=== PATIENT | female | born 2000 | race Caucasian/White ===

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

== ENCOUNTER 2019-03-15 12:50 | Inpatient (IN) | payer OTHER ==
[~2019-03-15] VITALS: Ht 162.6 cm; Wt 59.4 kg
[2019-03-15 13:29] LABS: Hematocrit 36.5 % (33.0-51.0); Hemoglobin 11.9 g/dL (11.5-16.0); Mean Corpuscular HGB 28.5 pg (26.0-34.0); Mean Corpuscular HGB Conc 32.6 g/dL (31.5-36.5); Mean Corpuscular Volume 88 fL (80-100); Mean Platelet Volume 8.8 fL (9.1-12.4); Platelet Count 268 K/mm3 (150-400); RDW Coefficient Variation 13.1 % (11.7-14.2); Red Blood Cell Count 4.17 M/mm3 (3.80-5.20); White Blood Cell Count 17.42 K/mm3 (4.00-11.30)
[2019-03-15 13:43] LABS: Alanine Aminotransfer (ALT/SGP 99 U/L (12-78); Albumin, Blood 3.4 g/dL (3.4-5.0); Albumin/Globulin Ratio 0.9 (0.8-1.8); Alk Phos 133 U/L (45-116); Anion Gap 6 mmol/L (6-16); Aspartate Aminotrans (AST/SGOT 171 U/L (12-37); Bilirubin, Total 0.8 mg/dL (0.1-1.0); Blood Urea Nitrogen 15 mg/dL (8-21); Bun/Creatinine Ratio 18.2 (12.0-20.0); CO2, Blood 25 mmol/L (21-32); Calcium, Blood 8.5 mg/dL (8.5-10.1); Chloride, Blood 105 mmol/L (98-108); Creatinine, Blood 0.82 mg/dL (0.40-1.00); Globulin, Blood 3.8 g/dL (2.2-4.0); Glomerular Filtration Rate >60 (60-); Glucose, Blood 118 mg/dL (70-99); Potassium, Blood 3.7 mmol/L (3.5-5.5); Sodium, Blood 136 mmol/L (136-145); Total Protein, Blood 7.2 g/dL (6.4-8.2)
[2019-03-15 13:49] LABS: BAND PERCENT MAN 3 % (0-8); BASOPHILS PERCENT MAN 0 % (0-2); EOSINOPHILS PERCENT MAN 0 % (0-6); LYMPHOCYTES ABSOLUTE MAN 0.52 K/mm3 (0.84-5.20); LYMPHOCYTES PERCENT MAN 3 % (21-46); MONOCYTES PERCENT MAN 0 % (4-13); NEUTROPHILS ABSOLUTE MAN 16.89 K/mm3 (1.96-9.15); SEG NEUTROPHILS PERCENT MAN 94 % (41-73); TOTAL CELLS COUNTED 100
--- NOTE | 2019-03-15 19:37 | NUR ---
ADMIT NOTE RECEIVED REPORT FROM SONALI CESPEDES RN IN ED. PT TO ROOM VIA GURNEY, 4 PERSON TRANSFER WITH SLIDER SHEET AT 1850. PT ORIENTED TO UNIT AND CALL LIGHT. PT EDUCATED ON FALL RISK AND ASKED TO USE CALL LIGHT PRIOR TO GETTING OUT OF BED. BED ALARM PLACED. PT RESPONDS TO VERBAL AND TACTILE STIMULI, PT STATES PERFERED NAME IS EZRIE. PT QUICKLY FALLS BACK ASLEEP AFER ANSWERING 1 QUESTION. VS: SBP STABLE IN 90'S, HEART 70-90'S AT REST, RESP 16 EVEN AND UNLABORED AND >92% ON RA, PT AFEBRILE ON ADMIT. PER REPORT PT USED HEROIN LAST THIS AM, AFTERWARD STARTED HAVING HEADACHE, FEVER, CHILLS, AND BODY ACHES. PT HAS INJECTION SITES ON INNER RIGHT ELBOW. CALLED DR FITZPATRICK TO CLARIFY ROCEPHIN ORDERS, HODL 1800 DOSE, TOO SOON AFTER 1415 DOSE. REPORTS GIVEN TO ONCOMING RN.
[2019-03-15 19:40] LABS: International Normalized Ratio 1.13; Prothrombin Time Results 11.8 Sec (9.7-11.5)
[2019-03-16 04:53] LABS: BASOPHILS ABSOLUTE AUTO 0.04 K/mm3 (0.00-0.23); BASOPHILS PERCENT AUTO 0 % (0-2); EOSINOPHILS ABSOLUTE AUTO 0.09 K/mm3 (0.00-0.68); EOSINOPHILS PERCENT AUTO 1 % (0-6); Hematocrit 32.8 % (33.0-51.0); Hemoglobin 10.7 g/dL (11.5-16.0); IMMATURE GRAN ABSOLUTE AUTO 0.07 K/mm3 (0.00-0.10); IMMATURE GRAN PERCENT AUTO 0 % (0-1); LYMPHOCYTES ABSOLUTE AUTO 2.06 K/mm3 (0.84-5.20); LYMPHOCYTES PERCENT AUTO 12 % (21-46); MONOCYTES ABSOLUTE AUTO 0.63 K/mm3 (0.16-1.47); MONOCYTES PERCENT AUTO 4 % (4-13); Mean Corpuscular HGB 27.9 pg (26.0-34.0); Mean Corpuscular HGB Conc 32.6 g/dL (31.5-36.5); Mean Platelet Volume 9.1 fL (9.1-12.4); NEUTROPHILS ABSOLUTE AUTO 14.76 K/mm3 (1.96-9.15); NEUTROPHILS PERCENT AUTO 84 % (41-73); Platelet Count 210 K/mm3 (150-400); RDW Coefficient Variation 13.5 % (11.7-14.2); RDW Standard Deviation 42.2 fL (35.1-46.3); Red Blood Cell Count 3.84 M/mm3 (3.80-5.20); White Blood Cell Count 17.65 K/mm3 (4.00-11.30)
[2019-03-16 04:54] LABS: Mean Corpuscular Volume 85 fL (80-100)
[2019-03-16 05:12] LABS: Alanine Aminotransfer (ALT/SGP 66 U/L (12-78); Albumin, Blood 2.8 g/dL (3.4-5.0); Albumin/Globulin Ratio 0.8 (0.8-1.8); Alk Phos 95 U/L (45-116); Anion Gap 5 mmol/L (6-16); Aspartate Aminotrans (AST/SGOT 55 U/L (12-37); Bilirubin, Total 0.4 mg/dL (0.1-1.0); Blood Urea Nitrogen 11 mg/dL (8-21); Bun/Creatinine Ratio 14.1 (12.0-20.0); CO2, Blood 25 mmol/L (21-32); Calcium, Blood 7.8 mg/dL (8.5-10.1); Chloride, Blood 113 mmol/L (98-108); Creatinine, Blood 0.78 mg/dL (0.40-1.00); Globulin, Blood 3.5 g/dL (2.2-4.0); Glomerular Filtration Rate >60 (60-); Glucose, Blood 90 mg/dL (70-99); Sodium, Blood 143 mmol/L (136-145); Total Protein, Blood 6.3 g/dL (6.4-8.2)
--- NOTE | 2019-03-16 06:44 | NUR ---
SHIFT SUMMARY PATIENT DROWSY AND LETHARGIC AT THE BEGINNING OF THE SHIFT. PATIENT WAS EASILY AROUSIBLE WITH VERBAL STIMULI AND TOUCH. HOWEVER, PATIENT WOULD FALL BACK ASLEEP IN THE MIDDLE OF SENTENCES. PATIENT APPEARED TO BE DROWSY UNTIL APPROX 0300 WHEN SHE BEGAN WAKING UP AND ASKING FOR FOOD. PATIENT CURRENTLY AWAKE, AERLT, ORIENTED, AND ABLE TO CARRY ON CONVERSATIONS WITH STAFF. PATIENT REPORTED REMEMBERING BEING VERY SLEEPY AND REMEMBERING THAT HER GRANDMA CAME BY TO VISIT AT THE BEGINNING OF THE SHIFT BUT SHE DOES NOT REMEMBER MUCH MORE THAN THAT PRIOR TO APPROX 0300. PATIENT CURRENTLY SITTING UP IN BED, EATING A SNACK AND WATCHING TV. VISITORS IN ROOM WITH PATIENT. IV FLUIDS RUNNING PER ORDERS. VITAL SIGNS CHARTED. WILL CONTINUE TO MONITOR PATIENT AND REPORT TO ONCOMING RN.
--- NOTE | 2019-03-16 09:40 | NUR ---
LATE ENTRY 07 PT AWAKE, ALERT AND ORIENTED, PT STATES SHE DOES NOT REMEMBER COMING UP TO THE ROOM LAST NIGHT. PT HAS BF AND FRIEND AT BEDSIDE. ROOM HAS FOOD WRAPS SCATTERED ON BEDSIDE TABLE. PT ASKING TO GO OUTSIDE TO SPOKE, PT NOTIFIED WE WOULD NEED TO SPEAK WITH DR KNOTT WHEN SHE ROUNDED. PT SPEECH IS FAST ANS PRESSURED. PT REPORTS HEADACHE, WILL MEDICATE PER EMAR. PT DENIES SOB AND NAUSEA. VSS. NO OTHER ACUTE CHAGNES NOTED. LATE ENTRY 09 PT GIVEN VANCO, PEPCID AND TYLENOL. PT ASKING TO GO OUT TO SMOKE. DR FITZPATRICK AT BEDSIDE, FIRST QUESTION IS IF SHE CAN GO SMOKE. NEW ORDERS FOR MED NO TELE, PT OK TO GO OUT SIDE AND SMOKE. PT NOTIFIED ONCE ANTIBITICS ARE COMPLETED WE CAN UNHOOK HER SO SHE CAN GO SMOKE. WILL CONTINUE TO MONITOR.
--- NOTE | 2019-03-16 11:11 | NUR ---
PT ASKING TO GO OUT TO SMOKE, STATES SHE WANTS TO LEAVE AND THAT SHE IS BOARD HERE. UNHOOKED PT FROM FLUIDS, PT IS MED STATUS NO TELE AND PER DR FITZPATRICK PATIENT IS ABLE TO GO OUT TO SMOKE. EDUCATED PT ON OPTIONS TO LEAVE AMA, STATES SHE WILL STAY IF WE ARE ABLE TO GIVE HER HEROIN OR SYNTHETIC HEROIN.
--- NOTE | 2019-03-16 12:29 | NUR ---
PT IN ROOM, EATING LUNCH, SITTING ON SIDE OF BED. VSS. PT STATES SHE IS GOING BACK OUTSIDE TO SMOKE, THEN WE CAN HOOK HER BACK UP TO FLUIDS. PT EDUCATED ON POLICY ON BEING OUT OF ROOM. WILL CONTINUE TO MONITOR.
--- NOTE | 2019-03-16 13:42 | NUR ---
PT BACK TO ROOM AFTER SECOND TRIP OUTSIDE TO SMOKE. PT SPEECH HAS SLOWED, DOES NOT APPEAR TO BE PRESSURE, LIKE PREVOUS ENCOUNTERS. PT HOOKED BACK UP TO FLUIDS. WILL CONTINUE TO MONITOR.
[2019-03-16 15:57] LABS: Vancomycin, Trough 11.6 ug/mL (5.0-10.0)
--- NOTE | 2019-03-16 18:21 | NUR ---
PT BACK TO ROOM AFTER A 1.5 HR TRIP SMOKING, RASHMIO GIVEN LATE AND WILL FOLLOW UP WITH JYOTSNA ONCE COMPLETE. PT EDUCATED ON POLICY OF GOING OUT FOR LESS THAN AN HOUR AND IS DEFENSIVE STATING SHE "WASNT GONE THAT LONG." HOWEVER, IS AGREEABLE FOR FUTURE WALKS.
--- NOTE | 2019-03-16 18:25 | NUR ---
SHIFT SUMMARY PT A&OX4. ANXIOUS AT TIMES. PT SPEECH THIS AM WAS PRESSURE AND FAST, SLOWED DOWN T/O SHIFT AFTER PATIENT WENT OUTSIDE TO SMOKE. PT RESTING IN BED/ON SIDE OF BED DURING SHIFT, IND IN ROOM. PT REPORTS HEADACHE AND PAIN IN LOWER BACK, MEDICATED PER EMAR. PT MEDICATED FOR ANXIETY PER ORDERS. PT DENIES SOB AND NAUSEA, PT REQUESTING MULTIPLE SNACK T/O SHIFT. PT RECEIVING IV ANTIBIOTICS. VSS. NO OTHER ACUTE CHAGNES NOTED DURING SHIFT. WILL CONTINUE TO MONITOR UNITL REPORT GIVE TO ONCOMING RN.
--- NOTE | 2019-03-16 19:30 | NUR ---
UPDATE VERIFIED WITH WHIT FROM [employer] MONITORING THAT THEY ARE ABLE TO VIEW ROOM AND PATIENT WELL AT THIS TIME.
[2019-03-17 06:13] LABS: BASOPHILS ABSOLUTE AUTO 0.03 K/mm3 (0.00-0.23); BASOPHILS PERCENT AUTO 0 % (0-2); EOSINOPHILS PERCENT AUTO 3 % (0-6); Hematocrit 32.6 % (33.0-51.0); Hemoglobin 10.4 g/dL (11.5-16.0); IMMATURE GRAN ABSOLUTE AUTO 0.02 K/mm3 (0.00-0.10); IMMATURE GRAN PERCENT AUTO 0 % (0-1); LYMPHOCYTES ABSOLUTE AUTO 2.16 K/mm3 (0.84-5.20); LYMPHOCYTES PERCENT AUTO 30 % (21-46); MONOCYTES ABSOLUTE AUTO 0.64 K/mm3 (0.16-1.47); MONOCYTES PERCENT AUTO 9 % (4-13); Mean Corpuscular HGB Conc 31.9 g/dL (31.5-36.5); Mean Corpuscular Volume 88 fL (80-100); Mean Platelet Volume 9.3 fL (9.1-12.4); NEUTROPHILS ABSOLUTE AUTO 4.21 K/mm3 (1.96-9.15); NEUTROPHILS PERCENT AUTO 58 % (41-73); Platelet Count 216 K/mm3 (150-400); RDW Standard Deviation 45.1 fL (35.1-46.3); Red Blood Cell Count 3.71 M/mm3 (3.80-5.20); White Blood Cell Count 7.26 K/mm3 (4.00-11.30)
--- NOTE | 2019-03-17 06:44 | NUR ---
SHIFT SUMMARY PATIENT PLEASENT THROUGHOUT THE NIGHT BUT WAS ANXIOUS AND FIDGITY. PATIENT'S BOYFRIEND IN AND OUT OF ROOM THROUGHOUT THE NIGHT. SEVERAL VISITORS CAME THROUGHOUT THE NIGHT WELL. PATIENT MEDICATED FOR ANXIETY X 1. PATIENT PROVIDED A HEATING PAD FOR BACK PAIN WHICH APPEARED TO PROVIDE PATIENT WITTH RELIEF. PATIENT AWAKE MOST OF THE NIGHT BUT APPEARED TO SLEEP WELL FOR THE LAST SEVERAL HOURS OF THE SHIFT. IV FLUIDS RUNNING PER ORDERS. PATIENT CURRENTLY APPEARS TO BE ASLEEP. WILL CONTINUE TO MONITOR PATIENT AND REPORT TO ONCOMING RN.
[2019-03-17] MEDS ORDERED: CEFU250T47 PO (14:35)
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
[2019-03-21 05:09] LABS: HBSAG SCREEN Negative (Negative); HEP A AB, IGM Negative (Negative); HEP B CORE AB, IGM Negative (Negative); HEP C VIRUS AB >11.0 (0.0-0.9)
== END 2019-03-17 15:00 | disposition home or self-care (01) | DRG 872 ==
LOC: ER 12:50 → PCU 16:10 → MEDS 16:10 → PCU 18:44
PROVIDERS: Emergency Medicine; ADMIT Internal Medicine
PROC: 009U3ZX Drainage of Spinal Canal, Percutaneous Approach, Diagnostic (ICD-10-PCS; principal; 2019-03-15)
DX: A41.9 Sepsis, unspecified organism (principal); F11.10 Opioid abuse, uncomplicated; F17.210 Nicotine dependence, cigarettes, uncomplicated; Z59.0 Homelessness; F32.9 Major depressive disorder, single episode, unspecified; Z51.5 Encounter for palliative care
CPT/HCPCS: 36415; 62270; 70450; 71046; 80053; 80074; 80202; 83605; 84703; 85025; 85610; 87040; 93005; 93010; 96361-59; 96365-59; 96367-59; 96375-59; 99285-25; A9270; J0696; J0780; J1200; J1885; J3370; J7030; J7050

== ENCOUNTER 2020-08-14 16:37 | Emergency (ER) | payer OTHER ==
[~2020-08-14] VITALS: Ht 162.6 cm; Wt 54.4 kg
[~2020-08-14 16:37] MED LIST changes: +CEFU250T47 PO
[2020-08-14] MEDS ORDERED: Veetids 500500 MG PO (16:52)
== END 2020-08-14 17:32 | disposition home or self-care (01) ==
LOC: ER 16:37
DX: K02.9 Dental caries, unspecified (principal); F17.210 Nicotine dependence, cigarettes, uncomplicated; Z88.8 Allergy status to other drugs, medicaments and biological substances
CPT/HCPCS: 99282; J1100

== ENCOUNTER → 2021-02-09 | Outpatient (CLI) | payer OTHER ==
[~2021-02-09] MED LIST changes: +Veetids 500500 MG PO
[2021-02-09 15:59] LABS: Alanine Aminotransfer (ALT/SGP 68 U/L (12-78); Albumin, Blood 3.8 g/dL (3.4-5.0); Albumin/Globulin Ratio 0.9 (0.8-1.8); Alk Phos 168 U/L (40-126); Anion Gap 8 mmol/L (6-16); Aspartate Aminotrans (AST/SGOT 32 U/L (12-37); Bilirubin, Direct 0.1 mg/dL (0.0-0.3); Bilirubin, Indirect 0.2 mg/dL (0.1-0.7); Bilirubin, Total 0.3 mg/dL (0.1-1.0); Blood Urea Nitrogen 14 mg/dL (8-24); Bun/Creatinine Ratio 22.2 (12.0-20.0); CO2, Blood 29 mmol/L (21-32); Calcium, Blood 9.2 mg/dL (8.5-10.1); Chloride, Blood 103 mmol/L (98-108); Creatinine, Blood 0.63 mg/dL (0.40-1.00); Globulin, Blood 4.4 g/dL (2.2-4.0); Glomerular Filtration Rate >60 (60-); Glucose, Blood 109 mg/dL (70-99); Potassium, Blood 4.5 mmol/L (3.5-5.5); Sodium, Blood 140 mmol/L (136-145); Total Protein, Blood 8.2 g/dL (6.4-8.2)
[2021-02-10 08:09] LABS: HIV SCREEN 4TH GENERATION WRFX Non Reactive (Non Reactive)
[2021-02-10 09:09] LABS: HBSAG SCREEN Negative (Negative); HCV ANTIBODY >11.0 (0.0-0.9); HEP A AB, IGM Negative (Negative); HEP B CORE AB, TOT Negative (Negative)
== END ==
LOC: LAB EV 15:41 → LAB SHORT 15:41
PROVIDERS: Family Medicine
DX: F19.21 Other psychoactive substance dependence, in remission (principal)
CPT/HCPCS: 80053; 82248; 86592; 86704; 86708; 86803; 87340; 87389

== ENCOUNTER 2021-04-18 17:51 | Emergency (ER) | payer OTHER ==
[~2021-04-18] VITALS: Ht 162.6 cm; Wt 72.6 kg
== END 2021-04-18 18:30 | disposition home or self-care (01) ==
LOC: ER 17:51
DX: U07.1 COVID-19 (principal); F17.210 Nicotine dependence, cigarettes, uncomplicated; Z88.8 Allergy status to other drugs, medicaments and biological substances
CPT/HCPCS: 99283

== ENCOUNTER 2021-11-21 15:59 | Emergency (ER) | payer OTHER ==
[~2021-11-21] VITALS: Ht 162.6 cm; Wt 63.5 kg
[~2021-11-21 15:59] MED LIST changes: +AMOCLA875 PO; +METH40
== END 2021-11-21 17:27 | disposition home or self-care (01) ==
LOC: ER 15:59
DX: G56.02 Carpal tunnel syndrome, left upper limb (principal); F17.210 Nicotine dependence, cigarettes, uncomplicated
CPT/HCPCS: 29125; 99283-25

== ENCOUNTER 2022-01-31 23:48 | Emergency (ER) | payer OTHER ==
[~2022-01-31] VITALS: Ht 162.6 cm; Wt 63.5 kg
[2022-02-01] MEDS ORDERED: Macrobid 100 M100 MG PO (00:42)
[2022-02-01] MEDS ORDERED: Flagyl500 MG PO (00:42)
== END 2022-02-01 00:55 | disposition home or self-care (01) ==
LOC: ER 23:48
DX: N76.0 Acute vaginitis (principal); N39.0 Urinary tract infection, site not specified; F17.210 Nicotine dependence, cigarettes, uncomplicated; Z88.8 Allergy status to other drugs, medicaments and biological substances; Z79.899 Other long term (current) drug therapy
CPT/HCPCS: 99283; A9270

== ENCOUNTER 2022-03-14 22:24 | Emergency (ER) | payer OTHER ==
[~2022-03-14] VITALS: Ht 162.6 cm; Wt 61.2 kg
[~2022-03-14 22:24] MED LIST changes: +Flagyl500 MG PO; +Macrobid 100 M100 MG PO
[2022-03-15] MEDS ORDERED: IBUP600 PO (01:29)
[2022-03-15] MEDS ORDERED: PROM25 PO (01:29)
== END 2022-03-15 01:46 | disposition home or self-care (01) ==
LOC: ER 22:24
DX: R51.9 Headache, unspecified (principal); R11.0 Nausea; R59.1 Generalized enlarged lymph nodes; F17.210 Nicotine dependence, cigarettes, uncomplicated; Z88.8 Allergy status to other drugs, medicaments and biological substances
CPT/HCPCS: 99283; A9270

== ENCOUNTER 2022-07-12 16:28 | Emergency (ER) | payer OTHER ==
[~2022-07-12] VITALS: Ht 162.6 cm; Wt 63.5 kg
[~2022-07-12 16:28] MED LIST changes: +IBUP600 PO; +PROM25 PO
[2022-07-12] MEDS ORDERED: Amoxicillin500 MG PO (16:37)
== END 2022-07-12 16:40 | disposition home or self-care (01) ==
LOC: ER 16:28
DX: K04.7 Periapical abscess without sinus (principal); F17.210 Nicotine dependence, cigarettes, uncomplicated; Z88.8 Allergy status to other drugs, medicaments and biological substances; Z79.899 Other long term (current) drug therapy
CPT/HCPCS: 99282

== ENCOUNTER 2023-09-16 20:11 | Emergency (ER) | payer OTHER ==
[~2023-09-16] VITALS: Ht 162.6 cm; Wt 72.6 kg
[~2023-09-16 20:11] MED LIST changes: +Atarax10 MG PO; +CATAPRES0.1 MG PO; +METH40 PO; +PRENATAL 19 TA1 EAC3 PO; +TRAZ50 PO
[2023-09-16 20:15] VITALS: BP 129/93
[2023-09-16 20:36] LABS: BASOPHILS ABSOLUTE AUTO 0.02 K/mm3 (0.00-0.23); BASOPHILS PERCENT AUTO 0 % (0-2); EOSINOPHILS PERCENT AUTO 0 % (0-6); Hematocrit 40.1 % (33.0-51.0); Hemoglobin 13.4 g/dL (11.5-16.0); IMMATURE GRAN ABSOLUTE AUTO 0.02 K/mm3 (0.00-0.10); IMMATURE GRAN PERCENT AUTO 0 % (0-1); LYMPHOCYTES ABSOLUTE AUTO 1.58 K/mm3 (0.84-5.20); LYMPHOCYTES PERCENT AUTO 15 % (21-46); MONOCYTES ABSOLUTE AUTO 0.49 K/mm3 (0.16-1.47); MONOCYTES PERCENT AUTO 5 % (4-13); Mean Corpuscular HGB 28.5 pg (26.0-34.0); Mean Corpuscular HGB Conc 33.4 g/dL (31.5-36.5); Mean Corpuscular Volume 85 fL (80-100); NEUTROPHILS ABSOLUTE AUTO 8.18 K/mm3 (1.96-9.15); NEUTROPHILS PERCENT AUTO 79 % (41-73); Platelet Count 236 K/mm3 (150-400); RDW Coefficient Variation 12.8 % (11.7-14.2); RDW Standard Deviation 39.4 fL (35.1-46.3); White Blood Cell Count 10.29 K/mm3 (4.00-11.30)
[2023-09-16 21:04] LABS: Albumin, Blood 4.1 g/dL (3.4-5.0); Albumin/Globulin Ratio 1.2 (0.8-1.8); Bilirubin, Total 0.4 mg/dL (0.1-1.0); Bun/Creatinine Ratio 22.6 (12.0-20.0); Calcium, Blood 9.3 mg/dL (8.5-10.1); Creatinine, Blood 0.57 mg/dL (0.40-1.00); Globulin, Blood 3.4 g/dL (2.2-4.0); Potassium, Blood 3.8 mmol/L (3.5-5.5); Total Protein, Blood 7.5 g/dL (6.4-8.2)
[2023-09-16] MEDS ORDERED: RECTICARE30 GM TOP (22:07)
[2023-09-16] MEDS ORDERED: ADULT GLYCERIN1 EACH PR (22:07)
== END 2023-09-16 22:21 | disposition home or self-care (01) ==
LOC: ER 20:11
PROVIDERS: Student in an Organized Health Care Education/Training Program
DX: K60.2 Anal fissure, unspecified (principal); K59.09 Other constipation; Z88.8 Allergy status to other drugs, medicaments and biological substances; Z79.899 Other long term (current) drug therapy
CPT/HCPCS: 80053; 85025; 86850; 86900; 86901; 99283

== ENCOUNTER 2023-10-08 16:06 | Emergency (ER) | payer OTHER ==
[~2023-10-08] VITALS: Ht 177.8 cm; Wt 68.0 kg
[~2023-10-08 16:06] MED LIST changes: +ADULT GLYCERIN1 EACH PR; +RECTICARE30 GM TOP
[2023-10-08 16:13] VITALS: BP 116/79
== END 2023-10-08 16:19 | disposition home or self-care (01) ==
LOC: ER 16:06
DX: Z11.1 Encounter for screening for respiratory tuberculosis (principal); F17.210 Nicotine dependence, cigarettes, uncomplicated
CPT/HCPCS: 99281

== ENCOUNTER → 2024-02-28 | Outpatient (CLI) | payer OTHER ==
[2024-02-28 18:52] LABS: BASOPHILS ABSOLUTE AUTO 0.03 K/mm3 (0.00-0.23); BASOPHILS PERCENT AUTO 1 % (0-2); EOSINOPHILS ABSOLUTE AUTO 0.02 K/mm3 (0.00-0.68); EOSINOPHILS PERCENT AUTO 0 % (0-6); Hematocrit 36.7 % (33.0-51.0); Hemoglobin 12.2 g/dL (11.5-16.0); IMMATURE GRAN ABSOLUTE AUTO 0.01 K/mm3 (0.00-0.10); IMMATURE GRAN PERCENT AUTO 0 % (0-1); LYMPHOCYTES PERCENT AUTO 27 % (21-46); MONOCYTES ABSOLUTE AUTO 0.35 K/mm3 (0.16-1.47); MONOCYTES PERCENT AUTO 6 % (4-13); Mean Corpuscular HGB 29.2 pg (26.0-34.0); Mean Corpuscular HGB Conc 33.2 g/dL (31.5-36.5); Mean Corpuscular Volume 88 fL (80-100); Mean Platelet Volume 9.8 fL (9.1-12.4); NEUTROPHILS ABSOLUTE AUTO 3.91 K/mm3 (1.96-9.15); NEUTROPHILS PERCENT AUTO 66 % (41-73); Platelet Count 240 K/mm3 (150-400); RDW Coefficient Variation 12.7 % (11.7-14.2); RDW Standard Deviation 40.9 fL (35.1-46.3); Red Blood Cell Count 4.18 M/mm3 (3.80-5.20); White Blood Cell Count 5.92 K/mm3 (4.00-11.30)
[2024-02-28 19:11] LABS: Albumin, Blood 3.9 g/dL (3.4-5.0); Bilirubin, Total 0.2 mg/dL (0.1-1.0); Calcium, Blood 9.3 mg/dL (8.5-10.1); Creatinine, Blood 0.69 mg/dL (0.40-1.00); Potassium, Blood 4.1 mmol/L (3.5-5.5); Thyroid Stimulating Hormone 2.278 uIU/mL (0.360-4.800); Total Protein, Blood 7.9 g/dL (6.4-8.2)
== END | disposition home or self-care (01) ==
LOC: LAB SHORT 18:47 → LAB 18:47
PROVIDERS: Internal Medicine
DX: R55 Syncope and collapse (principal)
CPT/HCPCS: 80053; 84443; 85025

== ENCOUNTER → 2024-09-02 | Outpatient (CLI) | payer OTHER | LOC: LAB SHORT 19:11 → LAB 19:11 | PROVIDERS: Family Medicine | DX: Z01.419 Encounter for gynecological examination (general) (routine) without abnormal findings (principal) | CPT/HCPCS: G0123 ==

== ENCOUNTER 2024-10-27 19:22 | Emergency (ER) | payer OTHER ==
[~2024-10-27] VITALS: Ht 167.6 cm; Wt 68.0 kg
[2024-10-27 19:37] VITALS: BP 113/87
== END 2024-10-27 19:41 | disposition home or self-care (01) ==
LOC: ER 19:22
DX: Z20.1 Contact with and (suspected) exposure to tuberculosis (principal); F17.210 Nicotine dependence, cigarettes, uncomplicated; Z79.899 Other long term (current) drug therapy; Z88.8 Allergy status to other drugs, medicaments and biological substances
CPT/HCPCS: 99281

== ENCOUNTER 2024-12-11 00:57 | Emergency (ER) | payer OTHER ==
[~2024-12-11] VITALS: Ht 162.6 cm; Wt 63.5 kg
[2024-12-11 01:21] VITALS: BP 114/73
[2024-12-11] MEDS ORDERED: Acetaminophen 500 MG Tab PO ONE (03:45)
[2024-12-11] MEDS ORDERED: RX Prepack 2 Sprays Naloxone HCL 4 MG/SPRAY UD ONE (03:45)
[2024-12-11] MEDS ORDERED: Methadone HCL 10 MG TAB PO ONE (03:50)
== END 2024-12-11 05:12 | disposition home or self-care (01) ==
LOC: ER 00:57
DX: F11.10 Opioid abuse, uncomplicated (principal); M79.10 Myalgia, unspecified site; F17.210 Nicotine dependence, cigarettes, uncomplicated; Z88.8 Allergy status to other drugs, medicaments and biological substances; Z79.899 Other long term (current) drug therapy; Z59.89 Other problems related to housing and economic circumstances
CPT/HCPCS: 99282; A9270